=== PATIENT | male | born 1990 | race Caucasian/White ===

== ENCOUNTER 2016-07-29 01:44 | Emergency (ER) | payer SELFPAY ==
[2016-07-29 02:12] VITALS: BP 122/72
== END 2016-07-29 02:10 | disposition left against medical advice (07) ==
LOC: ED 01:44
DX: R04.0 Epistaxis (principal); Z53.21 Procedure and treatment not carried out due to patient leaving prior to being seen by health care provider

== ENCOUNTER 2017-01-13 16:04 | Emergency (ER) | payer SELFPAY ==
[2017-01-13 16:24] VITALS: BP 102/58
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
[2017-01-13] MEDS ORDERED: MOTRIN PO ONE (20:11)
== END 2017-01-13 20:47 | disposition home or self-care (01) ==
LOC: ED 16:04
DX: S39.012A Strain of muscle, fascia and tendon of lower back, initial encounter (principal); V89.2XXA Person injured in unspecified motor-vehicle accident, traffic, initial encounter; Y93.89 Activity, other specified; Y92.89 Other specified places as the place of occurrence of the external cause; Y99.8 Other external cause status
CPT/HCPCS: 99282